=== PATIENT | male | born 1965 | race American Indian/Alaskan Native ===

== ENCOUNTER 2017-05-01 14:24 | Inpatient (IN) | payer OTHER ==
[2017-05-01] MEDS ORDERED: CORDARONE IV ONE (14:55)
--- NOTE | 2017-05-01 15:14 | XRay Report ---
FINAL REPORT EXAM: XR CHEST 1V AP HISTORY: cp TECHNIQUE: Single portable frontal view of the chest PRIORS: None FINDINGS: Lungs are clear. Heart size is mildly enlarged. Normal pulmonary vasculature. No effusion or pneumothorax. Unipolar ICD. IMPRESSION: 1. No acute finding. Unipolar ICD noted.
--- NOTE | 2017-05-01 15:14 | Emergency Department Report ---
HPI - General Chief Complaint: Arrhythmia/Palpitations Time Seen by Provider: 05/01/17 14:53 - HPI HPI: patient is from [facility] is here for a game, he has a history of htn, cardiomyopathy, and chf with aicd. two hrs prior to arrival to er, he was shocked by his aicd, and proceeded to have four more shocking episodes so he called ems and was brought to er. Pt c/o palpitations, sob, and tingling on both arms. Patient states he has been sick this week and saw his pcp and was given some mouth wash for a cold. patient's aicd is from [facility]. in er patient received amiodorone iv 150mg x1, for sustained v-tach and was placed on a amiodorone drip. Patient states he was diagnosed with cardiomyopathy about 10 years ago, it was thought that it was due to Adderall abuse. Prior to today he states that last time he was shocked was about 5 years ago while jogging. He was told to limit his physical activities and has not had any issues since. ED Past Medical Hx - Past Medical History Previous Medical History?: Yes Additional medical history: A-Fib - Surgical History Past Surgical History?: Yes Hx Pacemaker: Yes - Family History Family history: hypertension - Social History Smoking Status: Former Smoker Substance Use Type: Alcohol, Prescribed - Medications Home Medications: Home Medications Medication Instructions Recorded Confirmed Last Taken Type Amiodarone HCl [Amiodarone 100 MG 200 mg PO BID 05/01/17 05/01/17 Unknown History TAB] Carvedilol [Coreg] 25 mg PO BID 05/01/17 05/01/17 05/01/17 History Digoxin [Lanoxin] 1 tab PO QID 05/01/17 05/01/17 05/01/17 History Enalapril Maleate [Vasotec] 20 mg PO BID 05/01/17 05/01/17 05/01/17 History Zolpidem [Ambien] 10 mg PO QHS 05/01/17 05/01/17 04/30/17 History ED Review of Systems ROS: Stated complaint: DEFIBULATOR FIRING OFF Other details as noted in HPI Comment: All other systems reviewed and negative Respiratory: no symptoms reported Cardiovascular: chest pain, palpitations, dyspnea on exertion Endocrine: no symptoms reported Physical Exam - Physical Exam Vital Signs: Vital Signs 05/01/17 05/01/17 05/01/17 14:34 14:38 14:45 Temperature 98.1 F Pulse Rate 109 H 142 H 111 H Respiratory 16 22 18 Rate Blood Pressure 123/93 123/93 O2 Sat by Pulse 100 100 98 Oximetry 05/01/17 14:53 Temperature Pulse Rate 104 H Respiratory Rate Blood Pressure O2 Sat by Pulse Oximetry Physical Exam: Physical Exam: - General Limitations: No Limitations General appearance: alert, in severe distress - Head Head exam: Present: atraumatic, normocephalic - Eye Eye exam: Present: normal appearance - ENT ENT exam: Present: mucous membranes moist - Neck Neck exam: Present: normal inspection - Respiratory Respiratory exam: Present: normal lung sounds bilaterally. Absent: respiratory distress - Cardiovascular Cardiovascular Exam: Present: tachycardia, - GI/Abdominal GI/Abdominal exam: Present: soft, normal bowel sounds - Extremities Exam Extremities exam: Present: normal inspection - Back Exam Back exam: Present: normal inspection - Neurological Exam Neurological exam: Present: alert, oriented X3, - Skin Skin exam: Present: warm, dry, intact, normal color. Absent: rash ED Course Vital Signs 05/01/17 05/01/17 05/01/17 14:34 14:38 14:45 Temperature 98.1 F Pulse Rate 109 H 142 H 111 H Respiratory 16 22 18 Rate Blood Pressure 123/93 123/93 O2 Sat by Pulse 100 100 98 Oximetry 05/01/17 14:53 Temperature Pulse Rate 104 H Respiratory Rate Blood Pressure O2 Sat by Pulse Oximetry - Reevaluation(s) Reevaluation #1: 05/01/17 15:[address] Cowan in ER, for this patient. ED Medical Decision Making - Lab Data Result diagrams: 05/01/17 16:02 05/01/17 16:02 Critical Care Time: Yes Critical care time in (mins) excluding proc time.: 60 Critical care attestation.: If time is entered above; I have spent that time in minutes in the direct care of this critically ill patient, excluding procedure time. ED Disposition Clinical Impression: Ventricular fibrillation, paroxysmal, V tach, AICD discharge Disposition: OP ADMIT IP TO THIS HOSP Is pt being admited?: Yes Does the pt Need Aspirin: No Condition: Stable Referrals: PRIMARY CARE,MD [Primary Care Provider] - 3-5 Days
[2017-05-01] MEDS: ASPIRIN PO SCH (15:33)
[2017-05-01] MEDS ORDERED: CORDARONE 150 MG in D5W 100 ML IV ONE (16:00)
--- NOTE | 2017-05-01 16:11 | Consultation ---
History of Present Illness Consult date: 05/01/17 Requesting physician: MATTHEW YI Consult reason: other (ventricular tachycardia and ICD shock) History of present illness: He has a history of nonischemic cardiomyopathy, status post ICD implantation in 2009. He also has a history of ventricular tachycardia for which he has been on amiodarone 200 mg a day for years. His ejection fraction was reportedly 20% on his last echocardiogram over 1 year ago. The patient resides in [place]. He traveled to [place] yesterday in order to watch today's [employer] game. He claims that while preparing for his trip, he omitted to take his amiodarone for the past 3-4 days. Over the past one month, he has experienced intermittent mild cough and orthopnea in the supine position at night. He has also noted some exertional dyspnea while climbing stairs. He denies chest pain. While at the hotel this morning, he suddenly became dizzy followed by an ICD shock. Subsequently, he received 2 more shocks. This prompted activation of the EMS. En route to the hospital, he was reported to have received 3 more shocks. While in the ER, his nurse claims that she observed another shock which was associated with a brief loss of consciousness. All shocks noted by medical personnel were reported to have occurred in the setting of rapid VT. Past History Past Medical History: arrhythmia (ventricular tachycardia), other (nonischemic cardiomyopathy) Past Surgical History: Other ([facility] AICD implantation in 2009, left knee surgery and ankle surgery) Social history: smoking (occasional tobacco use), alcohol abuse (occasional social drinking) Family history: no significant family history Medications and Allergies Allergies Allergy/AdvReac Type Severity Reaction Status Date / Time No Known Allergies Allergy Unverified 05/01/17 14:59 Home Medications Medication Instructions Recorded Confirmed Last Taken Type Amiodarone HCl [Amiodarone 100 MG 200 mg PO BID 05/01/17 05/01/17 Unknown History TAB] Carvedilol [Coreg] 25 mg PO BID 05/01/17 05/01/17 05/01/17 History Digoxin [Lanoxin] 1 tab PO QID 05/01/17 05/01/17 05/01/17 History Enalapril Maleate [Vasotec] 20 mg PO BID 05/01/17 05/01/17 05/01/17 History Zolpidem [Ambien] 10 mg PO QHS 05/01/17 05/01/17 04/30/17 History Active Meds: Active Medications Aspirin (Aspirin) 325 mg PO QDAY [facility] Last Admin: 05/01/17 15:33 Dose: 325 mg Amiodarone HCl 900 mg/ (Dextrose) 500 mls @ 33.33 mls/hr IV DIRECT [facility]; 1 MG /MIN PRN Reason: Protocol Review of Systems Constitutional: no fever, no chills Ears, nose, mouth and throat: no ear pain, no ear discharge, no sore throat Cardiovascular: orthopnea, syncope, lightheadedness, no chest pain, no palpitations, no edema Respiratory: cough (at night), dyspnea on exertion Gastrointestinal: no abdominal pain, no nausea, no vomiting, no diarrhea, no constipation Genitourinary Male: no dysuria, no hematuria, no urinary frequency Rectal: no pain, no bleeding Musculoskeletal: no neck stiffness, no neck pain, no myalgias Integumentary: no rash, no pruritis Neurological: no weakness, no parathesias, no headaches Endocrine: no cold intolerance, no heat intolerance Hematologic/Lymphatic: no easy bruising, no easy bleeding Allergic/Immunologic: no urticaria, no wheezing Physical Examination Vital Signs Last Vital Signs Temp 98.1 F 05/01/17 14:38 Pulse 104 H 05/01/17 14:53 Resp 18 05/01/17 14:45 BP 123/93 05/01/17 14:45 Pulse Ox 98 05/01/17 14:45 General appearance: no acute distress HEENT: Positive: EOMI, Normocephaly, Mucus Membranes Moist Neck: Positive: neck supple, trachea midline Cardiac: Positive: Reg Rate and Rhythm, S1/S2 Lungs: Positive: clear to auscultation Neuro: Positive: Grossly Intact Abdomen: Positive: Soft, Active Bowel Sounds. Negative: Tender Skin: Positive: Clear. Negative: Rash Musculoskeletal: Normal Range of Motion Extremities: Present: normal. Absent: edema Results - Imaging and Cardiology EKG: image reviewed EKG interpretations - Telemetry EKG Rhythm: Sinus Rhythm - EKG Sinus rhythms and dysrhythmias: sinus rhythm Ventricular dysrhythmias: non-sustained ventricular QRS axis and voltage: right axis deviation Assessment and Plan I agree with IV amiodarone drip. Resume Coreg. resume Vasotec as BP permits. I will not reinitiate digoxin at this time due to potential for adverse interaction with amiodarone. I will subsequently resume oral amiodarone. Arrange ICD interrogation by [facility] device rep. Obtain electrolytes including magnesium and potassium. Obtain echocardiogram. Based on his history, he may be gradually developing heart failure symptoms. I may consider low-dose diuretic after seeing his labs. - Patient Problems (1) Ventricular tachycardia Current Visit: Yes Status: Acute (2) ICD (implantable cardioverter-defibrillator) discharge Current Visit: Yes Status: Acute (3) Nonischemic cardiomyopathy Current Visit: Yes Status: Chronic
[2017-05-01 16:41] LABS: Albumin 3.8 g/dL (3.9-5); Albumin/Globulin Ratio 1.3 %; Bilirubin,Total 1.5 mg/dL (0.1-1.2); Chloride 98.4 mmol/L (98-107); Potassium 3.6 mmol/L (3.6-5.0); Total Protein 6.8 g/dL (6.3-8.2)
[2017-05-01 16:44] LABS: Basophils % (Auto) 0.5 % (0.0-1.8); Eosinophils % (Auto) 0.2 % (0.0-4.3); Hematocrit 38.7 % (35.5-45.6); Hemoglobin 12.1 gm/dl (11.8-15.2); Mean Corpuscular HGB Conc 31 % (32-34); Mean Corpuscular Hemoglobin 28 pg (28-32); Mean Corpuscular Volume 91 fl (84-94); Platelet Count 160 K/mm3 (140-440); Red Blood Count 4.26 M/mm3 (3.65-5.03); Red Cell Distribution Width 15.9 % (13.2-15.2); White Blood Count 7.4 K/mm3 (4.5-11.0)
[2017-05-01 16:55] LABS: INR 1.35 (0.87-1.13)
[2017-05-01 16:56] LABS: Partial Thromboplastin Time 30.7 Sec. (24.2-36.6)
[2017-05-01] MEDS ORDERED: TYLENOL PO PRN (17:16)
[2017-05-01] MEDS ORDERED: PROVENTIL IH PRN (17:16)
--- NOTE | 2017-05-01 17:20 | History and Physical Report ---
History of Present Illness Chief complaint: I kept getting shocked History of present illness: 51 YO Male with Systolic CHF wit EF 20%, V Tach presents to ED for evaluation. The patient acknowledges medication noncompliance for the past 4 days. Pt states that he has experienced intermittent mild cough and Orthopnea, PND with worsening symptoms over the past week, as well as exertional dyspnea while climbing stairs. While at his hotel this morning, he suddenly became dizzy followed by an 3 AICD discharges. EMS was notified. Upon arrival, patient was found to have Ventricular Tachycardia. En route to the hospital, he was reported to have received 3 more shocks as per EMS. While in the ER, his nurse claims that she observed another shock which was associated with a brief loss of consciousness. Pt denies fever, chills, CP, NVD, productive cough, or recent ill contacts. Pt seen and evaluated in ED initiated on amiodarone drip with improvement in symptoms. Past History Past Medical History: arrhythmia (ventricular tachycardia), other (nonischemic cardiomyopathy) Past Surgical History: Other ([facility] AICD implantation in 2009, left knee surgery and ankle surgery) Social history: smoking (occasional tobacco use), alcohol abuse (occasional social drinking) Family history: no significant family history Medications and Allergies Allergies Allergy/AdvReac Type Severity Reaction Status Date / Time No Known Allergies Allergy Unverified 05/01/17 14:59 Home Medications Medication Instructions Recorded Confirmed Last Taken Type Amiodarone HCl [Amiodarone 100 MG 200 mg PO BID 05/01/17 05/01/17 Unknown History TAB] Carvedilol [Coreg] 25 mg PO BID 05/01/17 05/01/17 05/01/17 History Digoxin [Lanoxin] 1 tab PO QID 05/01/17 05/01/17 05/01/17 History Enalapril Maleate [Vasotec] 20 mg PO BID 05/01/17 05/01/17 05/01/17 History Zolpidem [Ambien] 10 mg PO QHS 05/01/17 05/01/17 04/30/17 History Active Meds: Active Medications Acetaminophen (Tylenol) 650 mg PO Q4H PRN PRN Reason: Pain MILD(1-3)/Fever >100.5/ZHU Albuterol (Proventil) 2.5 mg IH Q4H PRN PRN Reason: Shortness Of Breath Aspirin (Aspirin) 325 mg PO QDAY [facility] Last Admin: 05/01/17 15:33 Dose: 325 mg Carvedilol (Coreg) 25 mg PO BID [facility] Carvedilol (Coreg) 25 mg PO BID [facility] Amiodarone HCl 900 mg/ (Dextrose) 500 mls @ 33.33 mls/hr IV [facility]; 1 MG /MIN PRN Reason: Protocol Miscellaneous Medication (Amiodarone Hcl [Amiodarone 100 Mg Tab]) 200 mg PO BID [facility] Zolpidem Tartrate (Ambien) 10 mg PO QHS [facility] Review of Systems Constitutional: no weight loss, no weight gain, no fever Ears, nose, mouth and throat: no ear pain, no ear discharge, no tinnitis, no decreased hearing, no nose pain Cardiovascular: orthopnea, rapid/irregular heart beat, shortness of breath, dyspnea on exertion, no chest pain Respiratory: no cough, no cough with sputum, no excessive sputum, no hemoptysis Gastrointestinal: no nausea, no vomiting, no diarrhea, no constipation Genitourinary Male: no dysuria, no hematuria, no flank pain, no discharge, no urinary frequency, no urinary hesitancy Rectal: no pain, no incontinence, no bleeding Musculoskeletal: no neck stiffness, no neck pain, no arm numbness/tingling, no low back pain, no shooting leg pain, no leg numbness/tingling Integumentary: no rash, no pruritis, no redness, no sores, no wounds, no jaundice Neurological: no head injury, no transient paralysis, no paralysis, no weakness , no tingling, no seizures Psychiatric: no anxiety, no memory loss, no change in sleep habits, no sleep disturbances, no insomnia, no hypersomnia, no change in appetite Endocrine: no cold intolerance, no heat intolerance, no polyphagia, no excessive thirst, no polydipsia, no polyuria Hematologic/Lymphatic: no easy bruising, no easy bleeding Allergic/Immunologic: no urticaria, no allergic rhinitis, no wheezing Exam - Constitutional Vitals: Temp Pulse Resp BP Pulse Ox 98.4 F 70 15 90/52 98 05/01/17 16:32 05/01/17 16:46 05/01/17 16:46 05/01/17 16:46 05/01/17 16:46 General appearance: Present: mild distress - EENT Eyes: Present: PERRL ENT: hearing intact, clear oral mucosa - Neck Neck: Present: supple, normal ROM - Respiratory Respiratory effort: normal Respiratory: bilateral: CTA - Cardiovascular Heart Sounds: Present: S1 & S2. Absent: rub, click - Extremities Extremities: pulses symmetrical, No edema Peripheral Pulses: within normal limits - Abdominal General gastrointestinal: Present: soft, non-tender, non-distended, normal bowel sounds Male genitourinary: Present: normal - Integumentary Integumentary: Present: clear, warm, dry - Musculoskeletal Musculoskeletal: gait normal, strength equal bilaterally - Psychiatric Psychiatric: appropriate mood/affect, intact judgment & insight - Neurologic Neurologic: CNII-XII intact, moves all extremities Results - Labs CBC & Chem 7: 05/01/17 16:02 05/01/17 16:02 Labs: Abnormal lab results 05/01/17 05/01/17 05/01/17 Range/Units 16:02 16: 16:02 MCHC 31 L (32-34) % RDW 15.9 H (13.2-15.2) % Lymph % (Auto) 7.4 L (13.4-35.0) % Lymph # 0.5 L (1.2-5.4) K/mm3 Seg Neutrophils % 85.7 H (40.0-70.0) % PT (12.2-14.9) Sec. INR (0.87-1.13) BUN 24 H (9-20) mg/dL Glucose 163 H (75-100) mg/dL Total Bilirubin 1.50 H (0.1-1.2) mg/dL Total Creatine Kinase (55-170) units/L NT-Pro-B Natriuret Pep 00783 H (0-900) pg/mL Albumin 3.8 L (3.9-5) g/dL Digoxin (0.9-2.0) ng/mL 05/01/17 05/01/17 05/01/17 Range/Units 16:02 16:02 16:02 MCHC (32-34) % RDW (13.2-15.2) % Lymph % (Auto) (13.4-35.0) % Lymph # (1.2-5.4) K/mm3 Seg Neutrophils % (40.0-70.0) % PT 17.4 H (12.2-14.9) Sec. INR 1.35 H (0.87-1.13) BUN (9-20) mg/dL Glucose (75-100) mg/dL Total Bilirubin (0.1-1.2) mg/dL Total Creatine Kinase 230 H (55-170) units/L NT-Pro-B Natriuret Pep (0-900) pg/mL Albumin (3.9-5) g/dL Digoxin 0.6 L (0.9-2.0) ng/mL Assessment and Plan - Patient Problems (1) CHF (congestive heart failure) Current Visit: Yes Status: Acute Qualifiers: Congestive heart failure type: C Congestive heart failure chronicity: C Plan to address problem: CHF protocol: afterload reduction, B myke, continue amiodarone, monitor uop q shift, monitor fluid balance, low sodium diet, Echo, cardiology consulted. (2) ICD (implantable cardioverter-defibrillator) discharge Current Visit: Yes Status: Acute Plan to address problem: AICD interrogation, (3) Ventricular tachycardia Current Visit: Yes Status: Acute Plan to address problem: Continue amiodarone drip, as well as Coreg, telemetry, (4) DVT prophylaxis Current Visit: Yes Status: Acute
[2017-05-01] MEDS ORDERED: NACL 0.9% 1000 ML 1,000 ML IV ONE (18:53)
[2017-05-01] MEDS: CORDARONE 900 MG in D5W 482 ML IV SCH (19:45)
[2017-05-01] MEDS ORDERED: NACL 0.9% 1000 ML 1,000 ML IV SCH (20:20)
[2017-05-01] MEDS ORDERED: NON-FORMULARY (Amiodarone Hcl [Amiodarone 100 Mg Tab] 200 MG) PO SCH (22:00)
[2017-05-01] MEDS: COREG PO SCH ×2 (22:03→22:04)
[2017-05-01] MEDS: CORDARONE PO SCH (22:14)
[2017-05-01] MEDS: AMBIEN PO SCH (22:56)
[2017-05-02] MEDS ORDERED: NACL 0.9% 1000 ML 1,000 ML ONE (04:42)
[2017-05-02] MEDS: COREG PO SCH ×3 (10:12→21:45)
[2017-05-02] MEDS: CORDARONE PO SCH ×2 (10:12→18:17)
[2017-05-02] MEDS: ASPIRIN PO SCH (10:12)
--- NOTE | 2017-05-02 11:33 | Consultation ---
History of Present Illness - Reason for Consult Consult date: 05/02/17 VTACH, ICU monitoring Requesting physician: ELLIOT BROUSSARD - History of Present Illness 51 y/o male with known CAD, has an ICD, with several shocks delivered. Developed persistent VTACH, not coded and stable so ICU monitoring requested. Cards has seen patient and evaluated. Past History Past Medical History: arrhythmia (ventricular tachycardia), other (nonischemic cardiomyopathy) Past Surgical History: Other ([facility] AICD implantation in 2009, left knee surgery and ankle surgery) Social history: smoking (occasional tobacco use), alcohol abuse (occasional social drinking) Family history: no significant family history Medications and Allergies Allergies Allergy/AdvReac Type Severity Reaction Status Date / Time No Known Allergies Allergy Unverified 05/01/17 14:59 Home Medications Medication Instructions Recorded Confirmed Last Taken Type Amiodarone HCl [Amiodarone 100 MG 200 mg PO BID 05/01/17 05/01/17 Unknown History TAB] Carvedilol [Coreg] 25 mg PO BID 05/01/17 05/01/17 05/01/17 History Digoxin [Lanoxin] 1 tab PO QID 05/01/17 05/01/17 05/01/17 History Enalapril Maleate [Vasotec] 20 mg PO BID 05/01/17 05/01/17 05/01/17 History Zolpidem [Ambien] 10 mg PO QHS 05/01/17 05/01/17 04/30/17 History Active Meds: Active Medications Acetaminophen (Tylenol) 650 mg PO Q4H PRN PRN Reason: Pain MILD(1-3)/Fever >100.5/ZHU Albuterol (Proventil) 2.5 mg IH Q4H PRN PRN Reason: Shortness Of Breath Amiodarone HCl (Cordarone) 200 mg PO BID [facility] Last Admin: 05/02/17 10:12 Dose: 200 mg Aspirin (Aspirin) 325 mg PO QDAY [facility] Last Admin: 05/02/17 10:12 Dose: 325 mg Carvedilol (Coreg) 25 mg PO BID [facility] Last Admin: 05/02/17 10:12 Dose: 25 mg Carvedilol (Coreg) 25 mg PO BID [facility] Last Admin: 05/02/17 10:12 Dose: 25 mg Amiodarone HCl 900 mg/ (Dextrose) 500 mls @ 33.33 mls/hr IV [facility]; 1 MG /MIN PRN Reason: Protocol Last Admin: 05/01/17 19:45 Dose: 0.5 mg/min, 16.66 mls/hr Sodium Chloride (Nacl 0.9% 1000 Ml) 1,000 mls @ 100 mls/hr IV [facility] Zolpidem Tartrate (Ambien) 10 mg PO QHS [facility] Last Admin: 05/01/17 22:56 Dose: 10 mg Review of Systems All systems: negative Exam - Constitutional Vitals: Temp Pulse Resp BP Pulse Ox 100.9 F H 77 12 106/74 96 05/02/17 04:00 05/02/17 10:12 05/02/17 08:15 05/02/17 10:12 05/02/17 08:15 General appearance: Present: no acute distress - EENT Eyes: Present: PERRL, EOM intact ENT: hearing intact - Neck Neck: Present: supple, normal ROM - Respiratory Respiratory effort: normal Respiratory: bilateral: CTA Results - Labs CBC & Chem 7: 05/01/17 16:02 05/01/17 16:02 - Imaging and Cardiology Chest x-ray: image reviewed (clear CXR) Assessment and Plan 51 y/o with NICM, status post firing of ICD, now with persistent VTACH 1. Awake cards recs for today. 2. On amio drip 3. If amio is not being titrated, should be able to transfer/downgrade to floor bed 4. Will continue to follow if patient comes to ICU
--- NOTE | 2017-05-02 11:57 | Progress Note ---
Assessment and Plan Assessment and plan: Patient is 51 yo man with h/o hypertension and systolic heart failure with AICD from [place], [place], visiting [place] for the [facility] football game at the [facility] who presented to [facility] ED with 6 AICD discharges and sob. Chest x-ray read as no acute findings with unipolar ICD noted. -Ventricular tachycardia: Cardiology managing, on Amiodarone drip -NICM: continue medical management -Chronic systolic heart failure: stop IVF -HTN: continue antihypertensives History Interval history: Patient was seen and examined. Follow-up on current diagnosis/AICD firing/ shortness of breath. Overnight uneventful. Patient denies any chest pain, nausea/vomiting or severe headaches. Imaging, nursing note, chart, labs and old chart reviewed. Discussed with patient. Hospitalist Physical - Physical exam Narrative exam: GEN: WDWN, NAD, AWAKE, ALERT, ORIENTATED 3 HEENT: NCAT, EOMI, PERRL, OP Clear NECK: supple, no adenopathy, no thyromegaly, no JVD CVS/HEART: RRR, NORMAL S1S2, NO JVD, pulses present bilaterally CHEST/LUNGS: CTA B, Symmetrical chest expansion, good air entry bilaterally GI/Abdomen: soft, NTND, good bowel sounds, no guarding or rebound /Bladder: no suprapubic tenderness, no CVA or paraspinal tenderness EXT/Skin: no c/c/e, no significant edema or obvious rash MSK: FROM x 4 Neuro: CN 2-12 grossly intact, no new focal deficits Psych: calm - Constitutional Vitals: Temp Pulse Resp BP Pulse Ox 100.9 F H 77 12 106/74 96 05/02/17 04:00 05/02/17 10:12 05/02/17 08:15 05/02/17 10:12 05/02/17 08:15 General appearance: Present: no acute distress Results - Labs CBC & Chem 7: 05/01/17 16:02 05/01/17 16:02 Labs: Laboratory Last Values WBC 7.4 K/mm3 (4.5-11.0) 05/01/17 16:02 RBC 4.26 M/mm3 (3.65-5.03) 05/01/17 16:02 Hgb 12.1 gm/dl (11.8-15.2) 05/01/17 16:02 Hct 38.7 % (35.5-45.6) 05/01/17 16:02 MCV 91 fl (84-94) 05/01/17 16:02 MCH 28 pg (28-32) 05/01/17 16:02 MCHC 31 % (32-34) L 05/01/17 16:02 RDW 15.9 % (13.2-15.2) H 05/01/17 16:02 Plt Count 160 K/mm3 (140-440) 05/01/17 16:02 Lymph % (Auto) 7.4 % (13.4-35.0) L 05/01/17 16:02 [place] % (Auto) 6.2 % (0.0-7.3) 05/01/17 16:02 Eos % (Auto) 0.2 % (0.0-4.3) 05/01/17 16:02 Baso % (Auto) 0.5 % (0.0-1.8) 05/01/17 16:02 Lymph # 0.5 K/mm3 (1.2-5.4) L 05/01/17 16:02 [place] # 0.5 K/mm3 (0.0-0.8) 05/01/17 16:02 Eos # 0.0 K/mm3 (0.0-0.4) 05/01/17 16:02 Baso # 0.0 K/mm3 (0.0-0.1) 05/01/17 16:02 Seg Neutrophils % 85.7 % (40.0-70.0) H 05/01/17 16:02 Seg Neutrophils # 6.3 K/mm3 (1.8-7.7) 05/01/17 16:02 PT 17.4 Sec. (12.2-14.9) H 05/01/17 16:02 INR 1.35 (0.87-1.13) H 05/01/17 16:02 APTT 30.7 Sec. (24.2-36.6) 05/01/17 16:02 Sodium 140 mmol/L (137-145) 05/01/17 16:02 Potassium 3.6 mmol/L (3.6-5.0) 05/01/17 16:02 Chloride 98.4 mmol/L (98-107) 05/01/17 16:02 Carbon Dioxide 23 mmol/L (22-30) 05/01/17 16:02 Anion Gap 22 mmol/L 05/01/17 16:02 BUN 24 mg/dL (9-20) H 05/01/17 16:02 Creatinine 1.5 mg/dL (0.8-1.5) 05/01/17 16:02 Estimated GFR 59 ml/min 05/01/17 16:02 BUN/Creatinine Ratio 16.00 % 05/01/17 16:02 Glucose 163 mg/dL (75-100) H 05/01/17 16:02 Calcium 9.0 mg/dL (8.4-10.2) 05/01/17 16:02 Magnesium 2.00 mg/dL (1.7-2.3) 05/01/17 16:02 Total Bilirubin 1.50 mg/dL (0.1-1.2) H 05/01/17 16:02 AST 22 units/L (5-40) 05/01/17 16:02 ALT 31 units/L (7-56) 05/01/17 16:02 Alkaline Phosphatase 90 units/L (35-129) 05/01/17 16:02 Total Creatine Kinase 230 units/L (55-170) H 05/01/17 16:02 Troponin T 0.011 ng/mL (0.00-0.029) 05/01/17 16:02 NT-Pro-B Natriuret Pep 56013 pg/mL (0-900) H 05/01/17 16:02 Total Protein 6.8 g/dL (6.3-8.2) 05/01/17 16:02 Albumin 3.8 g/dL (3.9-5) L 05/01/17 16:02 Albumin/Globulin Ratio 1.3 % 05/01/17 16:02 Digoxin 0.6 ng/mL (0.9-2.0) L 05/01/17 16:02
--- NOTE | 2017-05-02 16:26 | Progress Note ---
Assessment and Plan Initiate loading doses of oral amiodarone and discontinue IV amiodarone. Subsequently, amiodarone dose will be reduced to 200 mg bid daily once his arrhythmia is adequately controlled. - Patient Problems (1) Ventricular tachycardia Current Visit: Yes Status: Acute (2) ICD (implantable cardioverter-defibrillator) discharge Current Visit: Yes Status: Acute (3) Nonischemic cardiomyopathy Current Visit: Yes Status: Chronic Subjective Date of service: 05/02/17 Principal diagnosis: VT, ICD shock, NICMP Interval history: Normal complaint. No significant arrhythmia so far today. Objective Vital Signs Last Vital Signs Temp 100.9 F H 05/02/17 04:00 Pulse 75 05/02/17 12:16 Resp 12 05/02/17 13:04 BP 105/84 05/02/17 12:16 Pulse Ox 99 05/02/17 13:04 - Physical Examination General: No Apparent Distress HEENT: Positive: EOMI, Normocephaly, Mucus Membranes Moist Neck: Positive: neck supple, trachea midline Cardiac: Positive: Reg Rate and Rhythm, S1/S2 Lungs: Positive: clear to auscultation Neuro: Positive: Grossly Intact Abdomen: Positive: Soft, Active Bowel Sounds. Negative: Tender Skin: Positive: Clear. Negative: Rash Musculoskeletal: Normal Range of Motion Extremities: Present: normal. Absent: edema - Imaging and Cardiology EKG: image reviewed - Telemetry EKG Rhythm: Sinus Rhythm - EKG Sinus rhythms and dysrhythmias: sinus rhythm Ventricular dysrhythmias: non-sustained ventricular QRS axis and voltage: right axis deviation
[2017-05-02] MEDS: CORDARONE 900 MG in D5W 482 ML IV SCH (16:29)
[2017-05-02] MEDS: AMBIEN PO SCH (21:45)
[2017-05-03] MEDS: CORDARONE PO SCH ×2 (02:17→09:10)
[2017-05-03] MEDS ORDERED: LASIX PO ONE (03:54)
--- NOTE | 2017-05-03 05:54 | Admit Criteria Form ---
Admission Criteria Documentation: HEART FAILURE: COMMON COMPLICATIONS Clinical Indications for Inpatient Care (sauk-suiattle/check or initial the applicable condition/criteria): Ongoing inpatient care may be indicated for heart failure with 1 or more of the following (1)(2)(3)(4)(5)(6)(7)(8): [ ]I. New-onset heart failure [ ]II. Acute cardiac ischemia causing or associated with failure [ ]III. Ongoing need for care for primary condition requiring frequent therapy adjustments because of changes in cardiac function (eg, drug dosage changes for drugs that are renally metabolized) [ X]IV. Complications of heart failure, including 1 or more of the following: [ ]a) Hemodynamic instability [ ]b) Pericardial effusion [ ]c) Symptomatic pleural effusion(16) [ ]d) Hypoxemia [ ]e) Tachypnea [ X]f) Dyspnea [ ]g) Syncope [ ]h) Altered mental status [ ]i) Acute renal insufficiency that is severe (reduction of more than 50% in estimated glomerular filtration rate from baseline) or progressive (reduction of more than 25% in estimated glomerular filtration rate from baseline, with creatinine continuing to rise) [ ]j) Debilitating anasarca (eg tissue breakdown with infection, inability to void due to edema)(E) (17) [ ]k) Clinically significant metabolic abnormalities due to heart failure (e.g., new-onset metabolic acidosis) Extended stay may be needed until ALL of the following are present(1)(3)(18)(41) (55): [ ]a) Hemodynamic stability [ ]b) Stable and effective diuretic regimen established (or patient on stable dialysis regimen if in chronic renal failure) [ ]c) Volume status acceptable on oral medication [ ]d) Breathing comfortably at rest [ ]e) Saturation of arterial oxygen greater than 90% or at acceptable baseline [ ]f) Pulmonary edema absent or improved [ ]g) Peripheral or sacral edema absent or improved [ ]h) Renal function stable and manageable at a lower level of care [ ]i) Complications (e.g., pleural effusion) resolved or manageable at a lower level of care [ ]j) Patient or caregiver has received written discharge instructions or educational material addressing activity level, diet, discharge medications, follow-up appointment, weight monitoring, and what to do if symptoms worsen. (56)(57)(58) The original [facility] [employer] content created by Mati Cruz has been revised. The portions of the content which have been revised are identified through the use of italic text or in bold, and Mati Cruz has neither reviewed nor approved the modified material.All other unmodified content is copyright [facility] [employer]. Please see references footnoted in the original [facility] Call[facility] edition 2017 Admission Criteria Met: Yes
[2017-05-03] MEDS: COREG PO SCH (09:10)
[2017-05-03] MEDS: ASPIRIN PO SCH (09:10)
[2017-05-03 09:57] VITALS: BP 110/78
[2017-05-03 10:02] LABS: BUN/Creatinine Ratio 20.66; Calcium 9.2 mg/dL (8.4-10.2); Chloride 95.9 mmol/L (98-107); Potassium 3.9 mmol/L (3.6-5.0)
--- NOTE | 2017-05-03 10:23 | Progress Note ---
Assessment and Plan Assessment and plan: Patient is 51 yo man with h/o hypertension and systolic heart failure with AICD from [place], [place], visiting [place] for the [facility] football game at the [facility] who presented to [facility] ED with 6 AICD discharges and sob. Chest x-ray read as no acute findings with unipolar ICD noted. -Ventricular tachycardia: Cardiology managing, on Amiodarone drip, now on oral Amiodarone -NICM: continue medical management -Chronic systolic heart failure: stop IVF -HTN: continue antihypertensives -DVT prophylaxis: added sq heparin, cr 1.5 full code D/c once cleared by Cardiology History Interval history: Patient was seen and examined. Follow-up on current diagnosis/AICD firing/ shortness of breath. Overnight uneventful. Patient denies any chest pain, nausea/vomiting or severe headaches. Imaging, nursing note, chart, labs and old chart reviewed. Discussed with patient. Hospitalist Physical - Physical exam Narrative exam: GEN: WDWN, NAD, AWAKE, ALERT, ORIENTATED 3 HEENT: NCAT, EOMI, PERRL, OP Clear NECK: supple, no adenopathy, no thyromegaly, no JVD CVS/HEART: RRR, NORMAL S1S2, NO JVD, pulses present bilaterally CHEST/LUNGS: CTA B, Symmetrical chest expansion, good air entry bilaterally GI/Abdomen: soft, NTND, good bowel sounds, no guarding or rebound /Bladder: no suprapubic tenderness, no CVA or paraspinal tenderness EXT/Skin: no c/c/e, no significant edema or obvious rash MSK: FROM x 4 Neuro: CN 2-12 grossly intact, no new focal deficits Psych: calm - Constitutional Vitals: Temp Pulse Resp BP Pulse Ox 98.0 F 75 22 110/78 100 05/03/17 09:56 05/03/17 09:56 05/03/17 06:12 05/03/17 09:56 05/03/17 10:00 General appearance: Present: no acute distress Results - Labs CBC & Chem 7: 05/01/17 16:02 05/03/17 09:19 Labs: Laboratory Last Values WBC 7.4 K/mm3 (4.5-11.0) 05/01/17 16:02 RBC 4.26 M/mm3 (3.65-5.03) 05/01/17 16:02 Hgb 12.1 gm/dl (11.8-15.2) 05/01/17 16:02 Hct 38.7 % (35.5-45.6) 05/01/17 16:02 MCV 91 fl (84-94) 05/01/17 16:02 MCH 28 pg (28-32) 05/01/17 16:02 MCHC 31 % (32-34) L 05/01/17 16:02 RDW 15.9 % (13.2-15.2) H 05/01/17 16:02 Plt Count 160 K/mm3 (140-440) 05/01/17 16:02 Lymph % (Auto) 7.4 % (13.4-35.0) L 05/01/17 16:02 [place] % (Auto) 6.2 % (0.0-7.3) 05/01/17 16:02 Eos % (Auto) 0.2 % (0.0-4.3) 05/01/17 16:02 Baso % (Auto) 0.5 % (0.0-1.8) 05/01/17 16:02 Lymph # 0.5 K/mm3 (1.2-5.4) L 05/01/17 16:02 [place] # 0.5 K/mm3 (0.0-0.8) 05/01/17 16:02 Eos # 0.0 K/mm3 (0.0-0.4) 05/01/17 16:02 Baso # 0.0 K/mm3 (0.0-0.1) 05/01/17 16:02 Seg Neutrophils % 85.7 % (40.0-70.0) H 05/01/17 16:02 Seg Neutrophils # 6.3 K/mm3 (1.8-7.7) 05/01/17 16:02 PT 17.4 Sec. (12.2-14.9) H 05/01/17 16:02 INR 1.35 (0.87-1.13) H 05/01/17 16:02 APTT 30.7 Sec. (24.2-36.6) 05/01/17 16:02 Sodium 137 mmol/L (137-145) 05/03/17 09:19 Potassium 3.9 mmol/L (3.6-5.0) 05/03/17 09:19 Chloride 95.9 mmol/L (98-107) L 05/03/17 09:19 Carbon Dioxide 21 mmol/L (22-30) L 05/03/17 09:19 Anion Gap 24 mmol/L 05/03/17 09:19 BUN 31 mg/dL (9-20) H 05/03/17 09:19 Creatinine 1.5 mg/dL (0.8-1.5) 05/03/17 09:19 Estimated GFR 59 ml/min 05/03/17 09:19 BUN/Creatinine Ratio 20.66 % 05/03/17 09:19 Glucose 115 mg/dL (75-100) H 05/03/17 09:19 Calcium 9.2 mg/dL (8.4-10.2) 05/03/17 09:19 Magnesium 2.00 mg/dL (1.7-2.3) 05/01/17 16:02 Total Bilirubin 1.50 mg/dL (0.1-1.2) H 05/01/17 16:02 AST 22 units/L (5-40) 05/01/17 16:02 ALT 31 units/L (7-56) 05/01/17 16:02 Alkaline Phosphatase 90 units/L (35-129) 05/01/17 16:02 Total Creatine Kinase 230 units/L (55-170) H 05/01/17 16:02 Troponin T 0.011 ng/mL (0.00-0.029) 05/01/17 16:02 NT-Pro-B Natriuret Pep 82193 pg/mL (0-900) H 05/01/17 16:02 Total Protein 6.8 g/dL (6.3-8.2) 05/01/17 16:02 Albumin 3.8 g/dL (3.9-5) L 05/01/17 16:02 Albumin/Globulin Ratio 1.3 % 05/01/17 16:02 Digoxin 0.6 ng/mL (0.9-2.0) L 05/01/17 16:02
--- NOTE | 2017-05-03 12:22 | Progress Note ---
Assessment and Plan The patient discharged home from a cardiac standpoint to follow up with his hospital account liaison in [place] within a week. On his current medications as well as amiodarone 200 mg twice a day. - Patient Problems (1) Ventricular tachycardia Current Visit: Yes Status: Acute (2) ICD (implantable cardioverter-defibrillator) discharge Current Visit: Yes Status: Acute (3) Nonischemic cardiomyopathy Current Visit: Yes Status: Chronic Subjective Date of service: 05/03/17 Principal diagnosis: VT, ICD shock, NICMP Interval history: No complaints. He feels fine. No significant arrhythmia on the monitor. Objective Vital Signs Last Vital Signs Temp 98.0 F 05/03/17 09:56 Pulse 73 05/03/17 10:00 Resp 22 05/03/17 06:12 BP 110/78 05/03/17 09:56 Pulse Ox 100 05/03/17 10:00 - Physical Examination General: No Apparent Distress HEENT: Positive: EOMI, Normocephaly, Mucus Membranes Moist Neck: Positive: neck supple, trachea midline Cardiac: Positive: Reg Rate and Rhythm, S1/S2 Lungs: Positive: clear to auscultation Neuro: Positive: Grossly Intact Abdomen: Positive: Soft, Active Bowel Sounds. Negative: Tender Skin: Positive: Clear. Negative: Rash Musculoskeletal: Normal Range of Motion Extremities: Present: normal. Absent: edema - Labs and Meds Comprehensive Metabolic Panel 05/03/17 Range/Units 09:19 Sodium 137 (137-145) mmol/L Potassium 3.9 (3.6-5.0) mmol/L Chloride 95.9 L (98-107) mmol/L Carbon Dioxide 21 L (22-30) mmol/L BUN 31 H (9-20) mg/dL Creatinine 1.5 (0.8-1.5) mg/dL Glucose 115 H (75-100) mg/dL Calcium 9.2 (8.4-10.2) mg/dL - Imaging and Cardiology EKG: image reviewed - Telemetry EKG Rhythm: Sinus Rhythm - EKG Sinus rhythms and dysrhythmias: sinus rhythm Ventricular dysrhythmias: non-sustained ventricular QRS axis and voltage: right axis deviation
--- NOTE | 2017-05-03 12:25 | Discharge Summary ---
Providers - Providers Date of Admission: 05/01/17 17:16 Date of discharge: 05/03/17 Attending physician: BRITTANY LOZADA 05/01/17 20:36 Consult to Physician [CONS] Routine Consulting Provider: BENITO MOFFETT Reason For Exam: V tach/V fib, Acute CHF Place consult to:: Dr. Moffett Notified:: Answering Service Phone number called:: [phone] Was contact made?: Yes If yes, spoke with:: Dr. Moffett Time called:: 20:44 Primary care physician: [employer]PER[employer] HELPER Hospitalization Condition: Stable Hospital course: Patient is 51 yo man with h/o hypertension and systolic heart failure with AICD from [place], [place], visiting [place] for the [facility] vs [place] football game at the [facility] [employer] who presented to [facility] ED with 6 AICD discharges and sob. Chest x-ray read as no acute findings with unipolar ICD noted. -Ventricular tachycardia: Cardiology managing, on Amiodarone drip, now on oral Amiodarone -NICM: continue medical management -Chronic systolic heart failure: stop IVF -HTN: continue antihypertensives -DVT prophylaxis: added sq heparin, cr 1.5 full code D/c once cleared by Cardiology per Secretary Of Police, Dr. Cowan: "The patient discharged home from a cardiac standpoint to follow up with his cook enchilada in [place] within a week. On his current medications as well as amiodarone 200 mg twice a day. - Patient Problems (1) Ventricular tachycardia Current Visit: Yes Status: Acute (2) ICD (implantable cardioverter-defibrillator) discharge Current Visit: Yes Status: Acute (3) Nonischemic cardiomyopathy Current Visit: Yes Status: Chronic Subjective Date of service: 05/03/17 Principal diagnosis: VT, ICD shock, NICMP Interval history: No complaints. He feels fine. No significant arrhythmia on the monitor." Disposition: NM-[id number] TO HOME OR SELFCARE Time spent for discharge: 35 minutes Core Measure Documentation - Palliative Care Palliative Care/ Comfort Measures: Not Applicable - Core Measures Any of the following diagnoses?: none - VTE Discharge Requirements Deep Vein Thrombosis/Pulmonary Embolism Present on Admission: No Has pt received <5 days of overlap therapy or INR<2.0: No Anticoagulant overlap therapy prescribed at discharge: No Contraindication No Overlap Therapy order at DC: Not Indicated Exam - Physical Exam Narrative exam: GEN: WDWN, NAD, AWAKE, ALERT, ORIENTATED 3 HEENT: NCAT, EOMI, PERRL, OP Clear NECK: supple, no adenopathy, no thyromegaly, no JVD CVS/HEART: RRR, NORMAL S1S2, NO JVD, pulses present bilaterally CHEST/LUNGS: CTA B, Symmetrical chest expansion, good air entry bilaterally GI/Abdomen: soft, NTND, good bowel sounds, no guarding or rebound /Bladder: no suprapubic tenderness, no CVA or paraspinal tenderness EXT/Skin: no c/c/e, no significant edema or obvious rash MSK: FROM x 4 Neuro: CN 2-12 grossly intact, no new focal deficits Psych: calm - Constitutional Vitals: Temp Pulse Resp BP Pulse Ox 98.0 F 73 22 110/78 100 05/03/17 09:56 05/03/17 10:00 05/03/17 06:12 05/03/17 09:56 05/03/17 10:00 Plan Activity: other (no strenous activities including but not exclusive to sex, work , driving, riding automobile detailer until cleared by Secretary Of Police) Diet: low salt Follow up with: PRIMARY CARE, [Primary Care Provider] - 3-5 Days Prescriptions: Amiodarone HCl [Amiodarone 100 MG TAB] 200 mg PO BID #30 day
[2017-05-03] MEDS ORDERED: CORDARONE PO SCH (22:00)
[2017-05-04] MEDS ORDERED: HEPARIN SUB-Q SCH (10:21)
== END 2017-05-03 14:25 | disposition home or self-care (01) | DRG 309 ==
LOC: ED 14:24 → 4A 17:16 → CC1 20:37 → 4A 05-02 11:37
PROVIDERS: ADMIT Internal Medicine; ATTEND Internal Medicine
DX: I49.01 Ventricular fibrillation (principal); I50.22 Chronic systolic (congestive) heart failure; I42.9 Cardiomyopathy, unspecified; F10.10 Alcohol abuse, uncomplicated; I25.10 Atherosclerotic heart disease of native coronary artery without angina pectoris; I11.0 Hypertensive heart disease with heart failure; Z82.49 Family history of ischemic heart disease and other diseases of the circulatory system; Z87.891 Personal history of nicotine dependence; Z95.810 Presence of automatic (implantable) cardiac defibrillator; Z91.14 Patient's other noncompliance with medication regimen
CPT/HCPCS: 36415; 71010; 80048; 80053; 80162; 82550; 83735; 83880; 84484; 85025; 85610; 85730; 93005; 93010; 93306; 94640; 94760; J0282; J7030; J7060